=== PATIENT | female | born 1995 | race Caucasian/White ===

== ENCOUNTER 2020-04-30 14:46 | Emergency (ER) | payer OTHER ==
[2020-04-30] MEDS ORDERED: ONDANSETRON 4 MG TAB.RAPDIS PO ONE (15:08)
--- NOTE | 2020-04-30 15:09 | ER Document Report ---
ED Medical Screen (RME) - General Chief Complaint: Abdominal Pain Stated Complaint: ABDOMINAL PAIN Time Seen by Provider: 04/30/20 15:06 Mode of Arrival: Ambulatory Information source: Patient Notes: Patient presents complaining of lower pelvic pain for the past 5 days. Patient reports some urinary frequency. Patient states the pain made her nauseous and she vomited once today. Patient denies any fever. Patient states she did just start her menstrual cycle today but has been having irregular menses recently. I have greeted and performed a rapid initial assessment of this patient. A comprehensive ED assessment and evaluation of the patient, analysis of test results and completion of the medical decision making process will be conducted by additional ED providers. Physical Exam - Vital signs Vitals: Temp Pulse Resp BP Pulse Ox 98.3 F 72 16 124/67 100 04/30/20 14:51 04/30/20 14:51 04/30/20 14:51 04/30/20 14:51 04/30/20 14:51 - Abdominal Tenderness: Tender - Lower pelvic tenderness Course - Vital Signs Vital signs: Temp Pulse Resp BP Pulse Ox 98.3 F 72 16 124/67 100 04/30/20 14:51 04/30/20 14:51 04/30/20 14:51 04/30/20 14:51 04/30/20 14:51
[2020-04-30 15:27] LABS: APPEARANCE,URINE CLEAR; BILIRUBIN,URINE NEGATIVE (NEGATIVE); COLOR,URINE YELLOW; GLUCOSE, URINE NEGATIVE (NEGATIVE); KETONES,URINE NEGATIVE (NEGATIVE); LEUKOCYTE ESTERASE,URINE NEGATIVE (NEGATIVE); NITRITE,URINE NEGATIVE (NEGATIVE); PROTEIN,URINE NEGATIVE (NEGATIVE); URINE SPECIFIC GRAVITY 1.012; UROBILINOGEN,URINE NEGATIVE mg/dL (<2.0)
[2020-04-30 15:53] LABS: ABSOLUTE BASOPHILS # (AUTO) 0.1 10^3/uL (0.0-0.2); ABSOLUTE EOSINOPHILS # (AUTO) 0.1 10^3/uL (0.0-0.6); ABSOLUTE LYMPHOCYTES (AUTO) 1.7 10^3/uL (0.5-4.7); ABSOLUTE MONOCYTES (AUTO) 0.4 10^3/uL (0.1-1.4); ABSOLUTE NEUT (AUTO) 5.4 10^3/uL (1.7-8.2); BASOPHILS % (AUTO) 0.7 % (0-2); EOSINOPHILS % (AUTO) 0.8 % (0-6); HEMATOCRIT 40.9 % (36.0-47.0); HEMOGLOBIN 13.7 g/dL (12.0-15.5); LYMPHOCYTES % (AUTO) 21.8 % (13-45); MEAN CORPUSCULAR HEMOGLOBIN 29.5 pg (27.0-33.4); MEAN CORPUSCULAR HGB CONC 33.4 g/dL (32.0-36.0); MEAN CORPUSCULAR VOLUME 88 fl (80-97); MONOCYTES % (AUTO) 5.3 % (3-13); PLATELET COUNT 193 10^3/uL (150-450); RED BLOOD COUNT 4.64 10^6/uL (3.72-5.28); SEGMENTED NEUTROPHILS % (AUTO) 71.4 % (42-78); TOTAL CELLS COUNTED % (AUTO) 100 %; WHITE BLOOD COUNT 7.6 10^3/uL (4.0-10.5)
[2020-04-30 16:02] LABS: ALBUMIN 4.6 g/dL (3.5-5.0); ALKALINE PHOSPHATASE 48 U/L (38-126); ANION GAP 8 (5-19); ASPARTATE AMINO TRANSFERASE 20 U/L (14-36); BILIRUBIN,DIRECT 0.3 mg/dL (0.0-0.4); BILIRUBIN,TOTAL 0.5 mg/dL (0.2-1.3); BLOOD UREA NITROGEN 9 mg/dL (7-20); CALCIUM 9.8 mg/dL (8.4-10.2); CARBON DIOXIDE 24 mmol/L (22-30); CHLORIDE 110 mmol/L (98-107); GLUCOSE 98 mg/dL (75-110); POTASSIUM 4.5 mmol/L (3.6-5.0); TOTAL PROTEIN 7.6 g/dL (6.3-8.2)
[2020-04-30 18:29] LABS: CHLAM PCR NOT DETECTED (NOT DETECT)
--- NOTE | 2020-04-30 18:29 | ER Document Report ---
ED GI/ - General Chief Complaint: Abdominal Pain Stated Complaint: ABDOMINAL PAIN Time Seen by Provider: 04/30/20 15:06 Primary Care Provider: ROB FERREIRA MD [ACTIVE STAFF] - Follow up as needed Mode of Arrival: Ambulatory Notes: CHIEF COMPLAINT: Pelvic pain HPI: 25-year-old female presenting to the emergency department complaining of intermittent pelvic pain over the last week. States that she has been having painful menstrual cycles over the last year is not seen ENVIRONMENTAL MANAGEMENT SPECIALIST for this. States she did start her menstrual cycle today had increased cramping last night and this morning which caused her to throw up one time this morning. No fever. Denies unilateral pain. ROS: See HPI - all other systems were reviewed and are otherwise negative Constitutional: no fever or recent illness Eyes: no drainage, no blurred vision ENT: no runny nose, no sore throat Cardiovascular: no chest pain Resp: no SOB, no cough GI: no vomiting, no diarrhea, positive pelvic pain : no dysuria, no vaginal discharge, positive vaginal bleeding Integumentary: no rash Allergy: no hives Musculoskeletal: no extremity pain or swelling Neurological: no numbness/tingling, no weakness MEDICATIONS: I agree with the patient medications as charted by the RN. ALLERGIES: I agree with the allergies as charted by the RN. PAST MEDICAL HISTORY/PAST SURGICAL HISTORY: Reviewed and agree as charted by RN. SOCIAL HISTORY: Reviewed and agree as charted by RN. FAMILY HISTORY: No significant familial comorbid conditions directly related to patient complaint EXAM: Reviewed vital signs as charted by RN. CONSTITUTIONAL: Alert and oriented and responds appropriately to questions. Well-appearing; well-nourished HEAD: Normocephalic; atraumatic EYES: Conjunctivae clear, sclerae non-icteric ENT: normal nose; no rhinorrhea; moist mucous membranes NECK: Supple without meningismus CARD: RRR; no murmurs, no clicks, no rubs, no gallops; symmetric distal pulses RESP: Normal chest excursion without splinting or tachypnea; breath sounds clear and equal bilaterally; no wheezes, no rhonchi, no rales ABD/GI: Normal bowel sounds; non-distended; soft, non-tender, no rebound, no guarding; no palpable organomegaly or masses : Female nurse area attendant present. External genitalia normal. No skin lesions noted. Pelvic Exam: Small amount of dark red blood in the vaginal vault. No purulent discharge. Cervix appears normal. No CMT. No lesions or masses. Uterus normal size and non tender. Right/Left adnexa normal size and non tender. BACK: The back appears normal and is non-tender to palpation, there is no CVA tenderness EXT: Normal ROM in all joints; non-tender to palpation; no cyanosis, no effusions, no edema SKIN: Normal color for age and race; warm; dry; good turgor; no acute lesions noted NEURO: Moves all extremities equally; Motor and sensory function intact PSYCH: The patient's mood and manner are appropriate. Grooming and personal hygiene are appropriate. MDM: 25-year-old female presenting with painful menstrual cycles for a year increased cramping over the last week with severe cramping this morning, minimal tenderness currently. Does not have fever. Initial screening lab work through triage process did not show acute abnormalities patient is not . Will obtain ultrasound to evaluate for ovarian cyst, ultrasound does not show acute abnormalities anticipate discharge to follow-up with ENVIRONMENTAL MANAGEMENT SPECIALIST - Related Data Allergies/Adverse Reactions: aloe Allergy (Verified 04/30/20 17:43) Past Medical History - General Information source: Patient - Social History Smoking Status: Unknown if Ever Smoked Family History: Reviewed & Not Pertinent Physical Exam - Vital signs Vitals: Temp Pulse Resp BP Pulse Ox 98.3 F 72 16 124/67 100 04/30/20 14:51 04/30/20 14:51 04/30/20 14:51 04/30/20 14:51 04/30/20 14:51 Course - Re-evaluation Re-evalutation: 04/30/20 19:04 Ultrasound did not show any acute abnormalities. Patient is noted to have vag initis will place her on Flagyl. Refer to ENVIRONMENTAL MANAGEMENT SPECIALIST - Vital Signs Vital signs: Temp Pulse Resp BP Pulse Ox 98.3 F 72 16 124/67 100 04/30/20 14:51 04/30/20 14:51 04/30/20 14:51 04/30/20 14:51 04/30/20 14:51 - Laboratory Result Diagrams: 04/30/20 15:25 04/30/20 15:25 Laboratory results interpreted by me: 04/30/20 04/30/20 14:55 15:25 Chloride 110 H Urine Blood SMALL H Discharge - Discharge Clinical Impression: Pelvic pain in female, Vaginal bleeding, abnormal, Bacterial vaginitis Condition: Stable Disposition: HOME, SELF-CARE Additional Instructions: Your lab work did not show acute emergent abnormalities other than bacterial vaginitis, take the Flagyl to treat this. This is a bacterial vaginal infection. Ultrasound was without acute abnormalities. Follow-up with ENVIRONMENTAL MANAGEMENT SPECIALIST for further evaluation and treatment, medications as prescribed Prescriptions: Metronidazole [Flagyl 500 mg Tablet] 500 mg PO BID #14 tablet Diclofenac Sodium [Voltaren 50 Mg Tablet.] 50 mg PO BID #20 tablet. Referrals: ROB FERREIRA MD [ACTIVE STAFF] - Follow up as needed
--- NOTE | 2020-04-30 18:41 | RADIOLOGY REPORT (SQ) ---
EXAM DESCRIPTION: U/S NON OB PEL TV W/DOPPLER IMAGES COMPLETED DATE/TIME: 04/30/2020 6:28 pm REASON FOR STUDY: pelvic pain COMPARISON: None. TECHNIQUE: Dynamic and static grayscale images acquired of the pelvis via transvaginal approach and recorded on PACS. Additional selected color Doppler and spectral images recorded. LIMITATIONS: None. FINDINGS: UTERUS: Contour normal. No mass. ENDOMETRIAL STRIPE: No focal or generalized thickening. No masses. CERVIX: 2.8 cm. RIGHT OVARY AND DOPPLER: Normal size. No worrisome masses. Normal arterial vascular flow without evid ence for torsion. LEFT OVARY AND DOPPLER: Normal size. No worrisome masses. Normal arterial vascular flow without evide nce for torsion. FREE FLUID: Small amount of free fluid in the posterior cul-de-sac. OTHER: No other significant finding. MEASUREMENTS: UTERUS: 9.1 x 5.4 x 4.2 cm. ENDOMETRIAL STRIPE: 6 mm. RIGHT OVARY: 2.4 x 2.5 x 1.7 cm. LEFT OVARY: 4.2 x 2.9 x 2.6 cm. IMPRESSION: NORMAL TRANSVAGINAL PELVIC ULTRASOUND. TECHNICAL DOCUMENTATION: JOB ID: [id number] [employer]- All Rights Reserved Rev-01/20 Reading location - IP/workstation name: [email or web address]
[2020-04-30 18:58] LABS: RBCS (WET MOUNT) 4+ RBCS SEEN; T.VAGINALIS (WET MOUNT) NO TRICHOMONAS SEEN; WBCS (WET MOUNT) 1+ WBCS SEEN; YEAST (WET MOUNT) NO YEAST SEEN
[2020-04-30 19:03] LABS: BACTERIA (WET MOUNT) 3+ BACTERIA SEEN
[2020-04-30] MEDS ORDERED: METRONIDAZOLE 500 MG TABLET PO ONE (19:04)
[2020-04-30 20:26] VITALS: BP 126/78
== END 2020-04-30 20:26 | disposition home or self-care (01) ==
LOC: ER 14:46
DX: N76.0 Acute vaginitis (principal); B96.89 Other specified bacterial agents as the cause of diseases classified elsewhere; N93.9 Abnormal uterine and vaginal bleeding, unspecified; N94.6 Dysmenorrhea, unspecified; R10.2 Pelvic and perineal pain; R11.10 Vomiting, unspecified; Z91.048 Other nonmedicinal substance allergy status
CPT/HCPCS: 36415; 76830; 80053; 81001; 84703; 85025; 87210; 87491; 87591; 93976; 99284